=== PATIENT | male | born 1975 | race Caucasian/White ===

== ENCOUNTER 2017-04-01 21:45 | Emergency (ER) | payer OTHER ==
[2017-04-01] MEDS ORDERED: NO MEDICATIONS (21:56)
== END 2017-04-01 22:46 | disposition home or self-care (01) ==
LOC: SED 21:45
DX: S05.11XA Contusion of eyeball and orbital tissues, right eye, initial encounter (principal); W23.0XXA Caught, crushed, jammed, or pinched between moving objects, initial encounter; Y92.69 Other specified industrial and construction area as the place of occurrence of the external cause; Y99.0 Civilian activity done for income or pay
CPT/HCPCS: 99283